=== PATIENT | female | born 1955 | race Caucasian/White ===

== ENCOUNTER 2017-06-23 06:18 | Day surgery (SDC) | payer OTHER ==
[~2017-06-23] VITALS: Ht 172.7 cm; Wt 87.7 kg
[2017-06-23] MEDS ORDERED: LIDOCAINE HCL 2% 30 ML JELLY TP ONE (06:19)
[2017-06-23] MEDS ORDERED: BENZOCAINE 20% 50 MCG/SPRAY 57 GM TP ONE (06:19)
[2017-06-23] MEDS ORDERED: LIDOCAINE HCL 4% 50 ML SOLUTION TP ONE (06:19)
[2017-06-23] MEDS ORDERED: ALBUTEROL SULFATE 2.5 MG/0.5 ML NEB SOLUTION NEB ONE (06:19)
[2017-06-23] MEDS ORDERED: SODIUM CHLORIDE 0.9% 1,000 ML IV ONE ×2 (06:34→07:00)
[2017-06-23 07:23] LABS: GLUCOMETER DEV NAME(LOC) SDS 5; GLUCOSE,POINT OF CARE 99 MG/DL (70-110)
[2017-06-23] MEDS ORDERED: METF500T4 PO (07:26)
[2017-06-23] MEDS ORDERED: FLUT16H NASAL (07:26)
[2017-06-23] MEDS ORDERED: BACL10TA PO (07:26)
[2017-06-23] MEDS ORDERED: ACET500C4 PO (07:26)
[2017-06-23] MEDS ORDERED: ALBU8.5H8 IH (07:26)
[2017-06-23] MEDS ORDERED: ALLO100T PO (07:26)
[2017-06-23] MEDS ORDERED: FAMO20 PO (07:26)
[2017-06-23] MEDS ORDERED: GABA-531 PO (07:26)
[2017-06-23] MEDS ORDERED: BUDE10.2 IH (07:26)
[2017-06-23] MEDS ORDERED: METO50 PO (07:26)
[2017-06-23] MEDS ORDERED: ATOR40TA28 PO (07:26)
[2017-06-23] MEDS ORDERED: MONT10TA21 PO (07:26)
[2017-06-23] MEDS ORDERED: [UNRECOGNIZED DRUG - OTHER] GT (07:26)
[2017-06-23] MEDS ORDERED: ASPI-1182 PO (07:26)
[2017-06-23] MEDS ORDERED: PROME5L PO (07:26)
[2017-06-23] MEDS ORDERED: FentaNYL CITRATE-PF 100 MCG/2 ML VIAL ONE (07:30)
[2017-06-23] MEDS ORDERED: MIDAZOLAM HCL 2 MG/2 ML VIAL ONE (07:30)
[2017-06-23] MEDS ORDERED: VITA150T PO (07:39)
[2017-06-23] MEDS ORDERED: CA C1TAB98 PO (07:39)
[2017-06-23] MEDS ORDERED: ASCO500 PO (07:39)
[2017-06-23] MEDS ORDERED: FISH1CAP63 PO (07:39)
[2017-06-23] MEDS ORDERED: VITAD1000 PO (07:39)
[2017-06-23] MEDS ORDERED: MULT-1214 PO (07:39)
[2017-06-23] MEDS ORDERED: MV,C400T2 PO (07:39)
[2017-06-23] MEDS ORDERED: UBID100C30 PO (07:39)
[2017-06-23] MEDS ORDERED: FAMO1TAB36 PO (07:39)
[2017-06-23] MEDS ORDERED: MethylPREDNISolone SOD SUCC 125 MG/2 ML VIAL IVP ONE (08:45)
[2017-06-23] MEDS ORDERED: MethylPREDNISolone SOD SUCC 125 MG/2 ML VIAL ONE (09:04)
[2017-06-23] MEDS ORDERED: OXYGEN THERAPY IH SCH (20:00)
== END 2017-06-23 10:45 | disposition home or self-care (01) ==
LOC: SURGERY 06:18
PROVIDERS: ATTEND Internal Medicine Critical Care Medicine
DX: J38.4 Edema of larynx (principal); B37.0 Candidal stomatitis; E11.9 Type 2 diabetes mellitus without complications; E78.00 Pure hypercholesterolemia, unspecified; Z88.0 Allergy status to penicillin; Z72.89 Other problems related to lifestyle; Z79.01 Long term (current) use of anticoagulants; Z79.899 Other long term (current) drug therapy; Z98.890 Other specified postprocedural states; Z87.891 Personal history of nicotine dependence; Z86.79 Personal history of other diseases of the circulatory system
CPT/HCPCS: 31623; 31624; 71010; 82962; 87015 ×2; 87070; 87101; 87205; 87220; 88108; 88312; J2250; J2930; J3010; J7030